=== PATIENT | female | born 1935 | race Caucasian/White ===

== ENCOUNTER 2017-04-21 09:32 | Emergency (ER) | payer MEDICARE ==
[2017-04-21 09:43] VITALS: RESP 18; TEMP 97.9; O2SAT 97
[2017-04-21 09:44] VITALS: BMI 34.5
--- NOTE | 2017-04-21 10:19 | ED PDOC ---
HPI: General Adult Time Seen by Provider: 04/21/17 09:44 Chief Complaint (Nursing): Upper Extremity Problem/Injury History Per: Patient History/Exam Limitations: no limitations Onset/Duration Of Symptoms: Days (x 1) Current Symptoms Are (Timing): Still Present Additional Complaint(s): Rhea is a 82 year old female, with a history of diabetes and hypertension, who presents to the emergency department complaining of dizziness associated with anxiety, onset last night. No chest pain or shortness of breath. PMD: Edgar Perez Past Medical History Reviewed: Historical Data, Nursing Documentation, Vital Signs Vital Signs: Last Vital Signs Temp 97.9 F 04/21/17 09:43 Pulse 87 04/21/17 10:48 Resp 18 04/21/17 09:43 BP 154/73 H 04/21/17 10:48 Pulse Ox 97 04/21/17 10:34 - Medical History PMH: Anxiety, Diabetes, HTN - Surgical History Surgical History: Tonsillectomy - Family History Family History: States: Unknown Family Hx - Home Medications Home Medications: Ambulatory Orders Medication Instructions Recorded Acetaminophen with Codeine 1 tab PO Q8 #10 tab 01/15/14 [Tylenol with Codeine No. 3 300 mg-30 mg] Hydroxyzine Pamoate [Vistaril] 25 mg PO HS #6 capsule 04/21/17 - Allergies Allergies/Adverse Reactions: Allergies Allergy/AdvReac Type Severity Reaction Status Date / Time No Known Allergies Allergy Verified 01/15/14 10:41 Review of Systems ROS Statement: Except As Marked, All Systems Reviewed And Found Negative Cardiovascular: Negative for: Chest Pain Respiratory: Negative for: Shortness of Breath Neurological: Positive for: Dizziness Psych: Positive for: Anxiety Physical Exam - Reviewed Nursing Documentation Reviewed: Yes Vital Signs Reviewed: Yes - Physical Exam Cardiovascular/Chest: Positive for: Regular Rate, Rhythm Respiratory: Positive for: Normal Breath Sounds (Lungs clear bilaterally) Extremity: Negative for: Tenderness, Swelling Neurologic/Psych: Positive for: Alert, Oriented (x 3). Negative for: Motor/ Sensory Deficits - ECG O2 Sat by Pulse Oximetry: 97 Medical Decision Making Medical Decision Making: Time: 10:02 Plan: - EKG - Accucheck Time: 10:28 Blood Sugar Finger Stick Result: 148 Scribe Attestation: Documented by Carlos Lara, acting as a scribe for Inocente Hearn MD Provider Scribe Attestation: All medical record entries made by the Scribe were at my direction and personally dictated by me. I have reviewed the chart and agree that the record accurately reflects my personal performance of the history, physical exam, medical decision making, and the department course for this patient. I have also personally directed, reviewed, and agree with the discharge instructions and disposition. Disposition - Clinical Impression Clinical Impression: Anxiety - Patient ED Disposition Is Patient to be Admitted: No Counseled Patient/Family Regarding: Studies Performed, Diagnosis, Need For Followup, Rx Given - Disposition Referrals: [facility] [Outside] Disposition: Routine/Home Disposition Time: 11:00 Condition: FAIR Prescriptions: Hydroxyzine Pamoate [Vistaril] 25 mg PO HS #6 capsule Instructions: Generalized Anxiety Disorder (ED) Forms: [facility] [facility] ([place]) Print Language: MONTSERRATIAN
[2017-04-21 10:49] VITALS: BP 154/73; PULSE 87
--- NOTE | 2017-04-21 17:14 | CARD ---
APPROVED REPORT EKG Measurement Heart [id number] <Conclusion> Normal sinus rhythm Normal ECG
== END 2017-04-21 10:48 | disposition home or self-care (01) ==
LOC: H.ER 09:32
DX: F41.9 Anxiety disorder, unspecified (principal); I10 Essential (primary) hypertension; E11.9 Type 2 diabetes mellitus without complications